=== PATIENT | male | born 1940 | race American Indian/Alaskan Native ===

== ENCOUNTER 2021-06-03 08:49 | Outpatient (CLI) | payer MEDICARE ==
--- NOTE | 2021-06-03 10:25 | Fluoroscopy Report ---
BARIUM SWALLOW Indication: R13.19. Dysphagia Technique: Single and double contrast barium technique utilized to evaluate the esophagus. FINDINGS: To begin the exam, swallowing was evaluated in the lateral position under direct fluorosco py. Swallowing was normal. No mucosal irregularity, mass, mass effect, or critical stenosis. Occasional tertiary contractions were identified in the mid to distal esophagus consistent with mild esophageal dysmotility. The patie nt was able to ingest and pass a barium tablet without difficulty. No gastroesophageal reflux was wit nessed during this exam. IMPRESSION: Mild esophageal dysmotility. No obstructing mass or stricture. Fluoroscopic time: 1.5 minutes Number of fluoroscopic images: 42 Signer Name: Avery Saldivar Jr, MD Signed: 06/03/2021 10:20 AM Workstation Name: [id number]
== END 2021-06-03 08:50 | disposition home or self-care (01) ==
LOC: FLUORO 08:49
PROVIDERS: ATTEND Internal Medicine Gastroenterology
DX: R13.19 Other dysphagia (principal)
CPT/HCPCS: 74220

== ENCOUNTER 2021-09-30 12:28 | Emergency (ER) | payer MEDICARE ==
--- NOTE | 2021-09-30 13:27 | XRay Report ---
CHEST 2 VIEWS INDICATION / CLINICAL INFORMATION: Chest Pain. COMPARISON: None available. FINDINGS: SUPPORT DEVICES: None. HEART / MEDIASTINUM: No significant abnormality. LUNGS / PLEURA: No significant pulmonary or pleural abnormality. No pneumothorax. ADDITIONAL FINDINGS: Multiple median sternotomy wires with a fractured superior wire. Postsurgical ch devang to the mediastinum. IMPRESSION: 1. No acute findings. Signer Name: Jeff Morgan DO Signed: 09/30/2021 1:23 PM Workstation Name: [id number]
[2021-09-30 13:46] LABS: Bilirubin,Urine Negative (Negative); Blood,Urine Large (Negative); Color,Urine BROWN (Yellow)
[2021-09-30 14:05] LABS: Basophils % (Auto) 0.6 % (0.0-1.8); Eosinophils # (Auto) 0.1 K/mm3 (0.0-0.4); Eosinophils % (Auto) 1.5 % (0.0-4.3); Hematocrit 40.2 % (35.5-45.6); Hemoglobin 13.5 gm/dl (11.8-15.2); Lymphocytes # (Auto) 1.7 K/mm3 (1.2-5.4); Lymphocytes % (Auto) 26.2 % (13.4-35.0); Mean Corpuscular HGB Conc 34 % (32-34); Mean Corpuscular Volume 95 fl (84-94); Monocytes # (Auto) 0.5 K/mm3 (0.0-0.8); Monocytes % (Auto) 7.5 % (0.0-7.3); Platelet Count 161 K/mm3 (140-440); Red Blood Count 4.25 M/mm3 (3.65-5.03); Red Cell Distribution Width 14.4 % (13.2-15.2)
[2021-09-30 14:23] LABS: Albumin 3.9 g/dL (3.9-5); Calcium 9.8 mg/dL (8.4-10.2)
[2021-09-30 14:35] LABS: Chol/HDL Ratio 2.75 %
--- NOTE | 2021-09-30 17:45 | Emergency Department Report ---
ED General Adult HPI - General Chief complaint: Chest Pain Stated complaint: POSS BLOOD IN URINE Time Seen by Provider: 09/30/21 17:41 Source: patient Mode of arrival: Ambulatory Limitations: No Limitations - History of Present Illness Initial comments: Patient is 81 years old male with history of end-stage renal disease on hemodialysis. Patient sent to the emergency room by his primary care physician for evaluation of hematuria. Patient stated that his urine has been cloudy recently and he was sent here to be checked for blood in the urine. Patient denied any symptoms. He specifically denied any chest pain or shortness of breath. He denied any abdominal or flank pain. No fever or chills. No nausea or vomiting. - Related Data Allergies Allergy/AdvReac Type Severity Reaction Status Date / Time No Known Allergies Allergy Verified 09/30/21 12:50 ED Review of Systems ROS: Stated complaint: POSS BLOOD IN URINE Other details as noted in HPI Comment: All other systems reviewed and negative Constitutional: denies: chills, fever Respiratory: denies: cough, shortness of breath, SOB with exertion, SOB at rest Cardiovascular: denies: chest pain, palpitations Gastrointestinal: denies: abdominal pain, nausea, vomiting, diarrhea, constipation, hematemesis, melena, hematochezia Genitourinary: hematuria. denies: urgency, dysuria, frequency, discharge, testicular pain, testicular mass Musculoskeletal: denies: back pain Neurological: denies: headache, weakness, numbness, paresthesias, confusion, abnormal gait ED Past Medical Hx - Past Medical History Hx Arthritis: Yes Hx Asthma: Yes - Surgical History Past Surgical History?: No - Social History Smoking Status: Never Smoker ED Physical Exam - General Limitations: No Limitations General appearance: alert, in no apparent distress - Head Head exam: Present: atraumatic, normocephalic, normal inspection - Eye Eye exam: Present: normal appearance - ENT ENT exam: Present: normal exam, normal orophraynx, mucous membranes moist - Neck Neck exam: Present: normal inspection, full ROM. Absent: tenderness, meningismus - Respiratory Respiratory exam: Present: normal lung sounds bilaterally - Cardiovascular Cardiovascular Exam: Present: regular rate, normal rhythm, normal heart sounds - GI/Abdominal GI/Abdominal exam: Present: soft, normal bowel sounds. Absent: distended, tenderness, guarding, rebound, rigid, organomegaly, mass, bruit, pulsatile mass, hernia - Extremities Exam Extremities exam: Present: normal inspection, full ROM, normal capillary refill. Absent: tenderness - Back Exam Back exam: Present: normal inspection, full ROM. Absent: CVA tenderness (R), CVA tenderness (L) - Neurological Exam Neurological exam: Present: alert, oriented X3, CN II-XII intact. Absent: motor sensory deficit - Psychiatric Psychiatric exam: Present: normal mood - Skin Skin exam: Present: warm, intact, normal color ED Course Vital Signs 09/30/21 09/30/21 09/30/21 12:47 20:29 20:30 Temperature 97.9 F Pulse Rate 73 74 72 Respiratory 14 14 20 Rate Blood Pressure 131/75 133/58 O2 Sat by Pulse 100 100 100 Oximetry 09/30/21 20:41 Temperature 97.6 F Pulse Rate 63 Respiratory 13 Rate Blood Pressure O2 Sat by Pulse 100 Oximetry ED Medical Decision Making - Lab Data Result diagrams: 09/30/21 13:10 09/30/21 13:10 - Radiology Data Radiology results: report reviewed - Medical Decision Making Patient is 81 years old male with history of end-stage renal disease on hemodialysis. Patient sent to the emergency room by his primary care physician for evaluation of hematuria. Patient stated that his urine has been cloudy recently and he was sent here to be checked for blood in the urine. Patient denied any symptoms. He specifically denied any chest pain or shortness of breath. He denied any abdominal or flank pain. No fever or chills. No nausea or vomiting. Patient remained stable in the ER with stable vital sign. Labs reviewed and showed hematuria. CT abdomen and pelvis is negative for acute finding. Patient stated that he had history of urethritis before. I will treat patient with ciprofloxacin and advised patient to follow-up with urologist in the next 2 to 3 days and to return to the ER if he develop any new symptoms. Critical care attestation.: If time is entered above; I have spent that time in minutes in the direct care of this critically ill patient, excluding procedure time. ED Disposition Clinical Impression: Hematuria, Urethritis Disposition: HOME / SELF CARE / HOMELESS Is pt being admited?: No Condition: Stable Instructions: Hematuria, Adult, Urethritis, Adult Referrals: MONSERRAT DELONG MD [Staff Physician] - 3-5 Days
--- NOTE | 2021-09-30 20:32 | Cat Scan Report ---
CT abdomen pelvis wo con INDICATION / CLINICAL INFORMATION: ABDOMINAL PAIN. TECHNIQUE: Axial CT imaging of abdomen and pelvis was obtained without contrast. Coronal and sagittal reformatte d imaging obtained and reviewed. All CT scans at this location are performed using CT dose reduction for ALARA by means of automated exposure control. COMPARISON: None available. FINDINGS: CT abdomen without contrast demonstrates grossly normal appearance of the liver, spleen, pancreas, an d adrenal glands. There are a few small calcified gallstones within the gallbladder. The gallbladder does not appear to be acutely inflamed. A small simple cyst is arising from the lower pole the right kidney measuring 2.5 cm. The right kidney is otherwise unremarkable. There is a exophytic simple cyst arising from the lateral left kidney measuring 3.3 cm. The abdominal aorta is aneurysmal. Moderate a mount of calcified plaque is present throughout the abdominal aorta. There is significant calcified p laque at the origin of the SMA and both main renal arteries. Aneurysm is infrarenal with maximum chapin sverse diameter of 3.2 cm, just above the bifurcation. Both common iliac arteries are mildly aneurysm al as well each measuring approximately 1.8 cm in diameter. Additionally there are multiple small abdominal wall hernias midline in the region of the umbilicus. They all contain fat only. No bowel is present within any of the small paraumbilical hernias. CT pelvis demonstrates a moderately enlarged prostate gland. No pelvic mass, free fluid, or focal inf lammatory changes noted. A normal appendix is present in the right lower quadrant. Visualized lung bases do not demonstrate any acute pulmonary or pleural disease. Review of the skeletal structures shows multilevel degenerative disc disease and associated spondylit ic change but no acute osseous abnormality. IMPRESSION: 1. No obvious source for the patient's hematuria. There are bilateral renal cysts as well as moderate prostatic enlargement, but no evidence of hydronephrosis, calculi or visible solid mass. 2. Incidental finding of infrarenal abdominal aortic aneurysm with maximum diameter of 3.2 cm. 3. Multiple small midline periumbilical abdominal wall hernias containing fat only. 4. Cholelithiasis without evidence of acute cholecystitis. 5. Extensive calcified plaque throughout the abdominal aorta and origin of the main abdominal arterie s. Signer Name: Chika Martinez MD Signed: 09/30/2021 8:28 PM Workstation Name: [id number]
[2021-09-30 20:43] VITALS: BP 133/58
== END 2021-09-30 21:50 | disposition home or self-care (01) ==
LOC: ED 12:28
DX: R31.9 Hematuria, unspecified (principal); N34.2 Other urethritis
CPT/HCPCS: 36415; 71046; 74176; 80053; 80061; 81001; 84484; 85025; 99284